=== PATIENT | female | born 1940 | race Caucasian/White ===

== ENCOUNTER 2017-07-11 10:51 | Inpatient (IN) | payer OTHER ==
[~2017-07-11] VITALS: Ht 152.4 cm; Wt 103.4 kg
[2017-07-11 10:55] VITALS: BP 238/133
[2017-07-11] MEDS ORDERED: LISINOPRIL20 MG PO (10:59)
[2017-07-11 11:30] LABS: ABSOLUTE BASOPHILS 0.1 thou/uL (0.0-0.2); ABSOLUTE EOSINOPHILS 0.1 thou/uL (0.0-0.7); ABSOLUTE LYMPHOCYTES 1.9 thou/uL (0.8-5.3); ABSOLUTE MONOCYTES 0.5 thou/uL (0.0-1.2); ABSOLUTE NEUTROPHILS 4.4 thou/uL (1.6-8.1); BASOPHILS 0.8 %; EOSINOPHILS 1.7 %; HEMATOCRIT 43.1 % (37.0-47.0); HEMOGLOBIN 14.5 gm/dL (12.0-15.0); LYMPHOCYTES 27.1 %; MCH 30.4 pg (26.0-34.0); MCHC 33.7 g/dL (28.0-37.0); MCV 90.3 fL (80.0-100.0); MONOCYTES 6.9 %; MPV 8.5 fl. (7.2-11.1); NUCLEATED RBCS 0 /100WBC; PLATELET COUNT* 204 thou/uL (150-400); POLYS 63.5 %; RBC 4.78 mil/uL (4.20-5.00); RDW-CV 13.4 % (10.5-14.5); WBC 6.9 thou/uL (4.0-11.0)
--- NOTE | 2017-07-11 11:37 | NUR ---
JEROME) NOTIFIED UPON PT RETURN FROM CT. PT CONNECTED TO MONITOR
[2017-07-11 11:41] LABS: ANION GAP 4 mmol/L (7-16); BUN 16 mg/dL (7-18); CALCIUM 8.4 mg/dL (8.5-10.1); CHLORIDE 106 mmol/L (98-107); CO2 30 mmol/L (21-32); CREATININE 0.9 mg/dL (0.6-1.3); GLUCOSE 114 mg/dL (70-99); POTASSIUM 3.8 mmol/L (3.5-5.1); SODIUM 140 mmol/L (136-145)
[2017-07-11 11:48] LABS: ALBUMIN 3.3 g/dL (3.4-5.0); ALKALINE PHOSPHATASE 82 U/L (46-116); SGOT 25 U/L (15-37); SGPT 32 U/L (30-65); TOTAL BILIRUBIN 0.5 mg/dL (<0.1-1.0); TOTAL PROTEIN 6.9 g/dL (6.4-8.2); TROPONIN-I LEVEL <0.06 ng/mL (<0.06)
[2017-07-11 12:44] LABS: URINE BILIRUBIN NEGATIVE (Negative); URINE BLOOD NEGATIVE (Negative); URINE CLARITY CLEAR; URINE COLOR YELLOW; URINE GLUCOSE-RANDOM NEGATIVE (Negative); URINE KETONES NEGATIVE (Negative); URINE LEUKOCYTES-REFLEX 1+ (Negative); URINE NITRITE-REFLEX NEGATIVE (Negative); URINE PROTEIN NEGATIVE (Negative); URINE SPECIFIC GRAVITY 1.015 (1.005-1.030); URINE UROBILINOGEN 0.2 E.U./dl (0.2-1.0)
[2017-07-11 13:01] LABS: MUCUS None Seen strn/LPF (None Seen); SQUAMOUS >10 Many /LPF (0-3)
[2017-07-11 13:02] LABS: URINE WBC-REFLEX 0-5 Rare /HPF (0-5)
[2017-07-11 13:03] LABS: CRYSTALS None Seen /LPF (None Seen); HYALINE CASTS 0-3 Few /LPF (None Seen); URINE RBC None Seen /HPF (0-2)
--- NOTE | 2017-07-11 16:52 | EKG ---
[place] [address] ELECTROCARDIOGRAM REPORT Name: MARGARETGRISEL Room: [place] [address] ADM IN [facility]#: [id number] Admission: 07/11/17 Attend Phys: German Mendez MD Discharge: Date of : 42 Report #: [id number] THIS REPORT FOR: //name// [facility] ED Test Date: 2017-07-11 Test Time: 11:02:59 Pat Name: GRISEL ROBLES Department: Room: Gender: F [employer]: : 1940 Requested By: Morgan Reese Order Number: [id number] MD: Liang Jung Measurements Intervals [place] Rate: 67 P: 45 SC: 166 QRS: -10 QRSD: 94 T: 6 QT: 402 QTc: 425 Interpretive Statements Sinus rhythm Left ventricular hypertrophy Borderline T abnormalities, anterior leads No previous ECG available for comparison Electronically Signed On 07-11-2017 16:52:39 CDT by Liang Jung [email or web address] <ELECTRONICALLY SIGNED> By: Liang Jung MD, [facility] 07/11/17 1652 D: 051101 01 Liang Jung MD, FACC /EPI
--- NOTE | 2017-07-11 17:13 | 2DMMODE ---
[place] [address] 2 D/M-MODE ECHOCARDIOGRAM Name: ROBLESGRISEL J Room: [address] IN [facility]#: [id number] Admission: 07/11/17 Attend Phys: German Mendez, Discharge: Date of : 42 Date of Service: 07/11/17 1713 Report #: [id number] THIS REPORT FOR: //name// APPROVED REPORT Study performed: 07/11/2017 14:41:16 EXAM: Comprehensive 2D, Doppler, and color-flow Echocardiogram Patient Location: In-Patient Room #: er Status: routine BSA: 2.03 HR: 87 bpm BP: 170/66 mmHg Rhythm: NSR Other Information Study Quality: Good Indications CVA/TIA Echo Enhancing Agent Indication: Rule out Shunt Agent(s) / Amount(s) Used: Agitated Saline 10 cc 2D Dimensions LVEF(%): 74.75 (>50%) IVSd: 11.48 (7-11mm) LVOT Diam: 18.78 (18-24mm) LVDd: 43.84 mm PWd: 11.05 (7-11mm) Ascending Ao: 35.12 (22-36mm) LVDs: 24.83 (25-40mm) Aortic Root: 33.15 mm Hodgson's LVEF: 74.75 % Volumes Left Atrial Volume (Systole) LA ESV Index: 24.50 mL/m2 Aortic Valve AoV Peak Gabino.: 1.55 m/s AO Peak Gr.: 9.64 mmHg LVOT Max P.24 mmHg AO Mean Gr.: 5.02 mmHg LVOT Mean P.00 mmHg LVOT Max V: 1.25 m/s AO V2 VTI: 34.80 cm LVOT Mean V: 0.79 m/[place] [address] 2 D/M-MODE ECHOCARDIOGRAM Name: GRISEL ROBLES Room: [address] IN ..#: [id number] Admission: 07/11/17 Attend Phys: German Mendez, Discharge: Date of : 42 Date of Service: 07/11/17 1713 Report #: [id number] EMILY (VTI): 2.58 cm2 LVOT V1 VTI: 32.45 cm Mitral Valve E/A Ratio: 0.70 MV Decel. Time: 296.29 ms MV E Max Gabino.: 0.72 m/s MV PHT: 85.92 ms MVA (PHT): 2.56 cm2 TDI E/Lateral E': 6.55 E/Medial E': 6.00 Medial E' Gabino.: 0.12 m/s Lateral E' Gabino.: 0.11 m/s Pulmonary Valve PV Peak Gabino.: 1.10 m/s PV Peak Gr.: 4.84 mmHg Left Ventricle The left ventricle is normal size. There is normal LV segmental wall motion. There is normal left ventricular wall thickness. Left ventricular systolic function is normal. The left ventricular ejection fraction is within the normal range. LVEF is 55-60%. Grade I - abnormal relaxation pattern. Right Ventricle The right ventricle is normal size. The right ventricular systolic function is normal. Atria The left atrium size is normal. Interatrial septum is intact without evidence of ASD or PFO. The right atrium size is normal. Aortic Valve The aortic valve is normal in structure. Trace aortic regurgitation. There is no aortic valvular stenosis. Mitral Valve The mitral valve is normal in structure. Trace mitral regurgitation. No evidence of mitral valve stenosis. Tricuspid Valve The tricuspid valve is normal in structure. Unable to assess PA pressure. Trace tricuspid regurgitation. Pulmonic Valve The pulmonary valve is normal in structure. [place] [address] 2 D/M-MODE ECHOCARDIOGRAM Name: ROBLESGRISEL J Room: [address] IN .R.#: [id number] Admission: 07/11/17 Attend Phys: German Mendez, Discharge: Date of : 42 Date of Service: 07/11/17 1713 Report #: [id number] regurgitation. Great Vessels The aortic root is normal in size. IVC is normal in size and collapses with >50% inspiration Pericardium There is no pericardial effusion. <Conclusion> LVEF is 55-60%. Interatrial septum is intact without evidence of ASD or PFO. <ELECTRONICALLY SIGNED> By: Liang Jung MD, FACC 07/11/171712 12 12 Liang Jung MD, FACC /INF
[2017-07-11 17:31] VITALS: BP 176/70
[2017-07-11 18:25] VITALS: BP 155/63
[2017-07-11 18:40] VITALS: BP 164/56
[2017-07-11 20:03] VITALS: BP 170/58
[2017-07-11 23:57] VITALS: BP 124/46
[2017-07-12 04:05] VITALS: BP 149/58
[2017-07-12 05:11] LABS: HEMOGLOBIN 13.7 gm/dL (12.0-15.0); MCH 30.6 pg (26.0-34.0); MCHC 33.4 g/dL (28.0-37.0); MCV 91.4 fL (80.0-100.0); RBC 4.48 mil/uL (4.20-5.00); RDW-CV 13.8 % (10.5-14.5); WBC 7.7 thou/uL (4.0-11.0)
--- NOTE | 2017-07-12 05:14 | NUR ---
PT IS ABLE TO COMMUNICATE HER NEEDS TO STAFF EFFECTIVELY. CURRENT PAIN MEDICATION REGIMEN HAS BEEN ADEQUATE FOR CONTROLLING HER PAIN UP TO THIS TIME. NO OBSERVABLE CHANGE TO NEUROLOGIC STATUS UP TO THIS TIME. NEUROLOGY CONSULTED. POSSIBLE DISCHARGE TODAY.
[2017-07-12 05:27] LABS: CHOLESTEROL 197 mg/dL (<200); HDL CHOLESTEROL 55 mg/dL (>40); LDL CHOLESTEROL 128 mg/dL (<100); TC:HDL 3.6 Ratio (Not establshd); TRIGLYCERIDE 73 mg/dL (<150); VLDL 15 mg/dL (<40)
[2017-07-12 05:32] LABS: SERUM ASSESSMENT CLEAR
[2017-07-12 06:13] LABS: CALCIUM 8.5 mg/dL (8.5-10.1); CREATININE 0.9 mg/dL (0.6-1.3); MAGNESIUM 2.2 mg/dL (1.8-2.4); POTASSIUM 3.9 mmol/L (3.5-5.1)
--- NOTE | 2017-07-12 08:24 | NUR ---
ASSUMED PT. CARE AND RECEIVED REPORT AT 0730. PT A/OX4, BP BETTER TODAY AT 150/76, ALL OTHER VSS. PT. C/O HAVING OCULAR MIGRAINE THIS MORNING, STATING CONCERN BECAUSE SHE IS HAVING THEM EVERYDAY HERE RECENTLY. ON RA @ 95%. DENIES CURRENT NUMBNESS/TINGLING. FULL ASSESSMENT COMPLETED, REFER TO CHARTING. CALL LIGHT IN REACH, WILL CONTINUE WITH PLAN OF CARE.
[2017-07-12 08:26] VITALS: BP 150/76
[2017-07-12] MEDS ORDERED: ATORVASTATIN CA20 MG PO (09:09)
[2017-07-12] MEDS ORDERED: ADULT LOW DOSE81 MG PO (09:09)
--- NOTE | 2017-07-12 11:58 | NUR ---
PT'S MEDICAL CHART REVIEWED AND STATUS DISCUSSED W/ NSG. PT IS UP AD [facility] INDEP IN ROOM DEMONSTRATING STABLE TRANSFERS AND GAIT W/O DME SUPPORT. PT VOICES NO CONCERNS W/ DISCHARGE TO HOME. NO FURTHER ACUTE PT SERVICES ARE INDICATED.
[2017-07-12 12:16] VITALS: BP 165/64
[2017-07-12 12:25] VITALS: BP 165/64
--- NOTE | 2017-07-12 14:04 | NUR ---
PT. REPORTED TORDAL HELPED WITH "FLOATERS", HOWEVER SHE WAS STILL HAVING AN ACHING NECK. SHE CONTINUED TO REPORT THAT SHE WANTED TO GO HOME. IV AND MONITOR REMOVED. PT. GIVEN DC INSTRUCTIONS, SCRIPTS, AND CARENOTES. PT. LEFT IN PERSONAL VEHICLE, ALL BELONGINGS ACCOUNTED FOR.
[2017-12-18] MEDS ORDERED: EFUDEX40 GM TOP (09:36)
[2017-12-18] MEDS ORDERED: GARLIC OIL1000 MG PO (09:36)
[2017-12-18] MEDS ORDERED: UNICOMPLEX M TA1 TA1 PO (09:37)
[2017-12-18] MEDS ORDERED: OMEGA-31000 M1 PO (09:37)
[2017-12-18] MEDS ORDERED: MOBIC15 MG PO (11:03)
== END 2017-07-12 13:30 | disposition home or self-care (01) | DRG 103 ==
LOC: M.ERS 10:51 → M.TBA-ER 13:34 → M.2W 13:34
PROVIDERS: Emergency Medicine Emergency Medical Services; ADMIT Internal Medicine
DX: G43.101 Migraine with aura, not intractable, with status migrainosus (principal); E44.1 Mild protein-calorie malnutrition; I16.1 Hypertensive emergency; Z68.41 Body mass index [BMI] 40.0-44.9, adult; I10 Essential (primary) hypertension; G43.B0 Ophthalmoplegic migraine, not intractable; E78.5 Hyperlipidemia, unspecified; E66.9 Obesity, unspecified; Z79.82 Long term (current) use of aspirin; Z79.899 Other long term (current) drug therapy

== ENCOUNTER → 2017-07-24 | Outpatient (CLI) | payer OTHER ==
[~2017-07-24] MED LIST: ADULT LOW DOSE81 MG PO; ATORVASTATIN CA20 MG PO; EFUDEX40 GM TOP; GARLIC OIL1000 MG PO; LISINOPRIL20 MG PO; MOBIC15 MG PO; OMEGA-31000 M1 PO; UNICOMPLEX M TA1 TA1 PO
== END ==
LOC: M.MRI 07-14 12:24
DX: M50.223 Other cervical disc displacement at C6-C7 level (principal); M50.322 Other cervical disc degeneration at C5-C6 level; G45.9 Transient cerebral ischemic attack, unspecified; I63.9 Cerebral infarction, unspecified; M79.601 Pain in right arm

== ENCOUNTER → 2017-08-04 | Outpatient (CLI) | payer OTHER | LOC: M.MRI 07:49 | DX: M47.26 Other spondylosis with radiculopathy, lumbar region (principal); M48.061 Spinal stenosis, lumbar region without neurogenic claudication; M12.88 Other specific arthropathies, not elsewhere classified, other specified site; M25.78 Osteophyte, vertebrae ==

== ENCOUNTER → 2017-12-18 | Outpatient (CLI) | payer OTHER ==
--- NOTE | 2018-01-07 16:20 | PAINCON ---
[address] [address] PAIN MANAGEMENT CONSULTATION Name: GRISEL ROBLES [facility]: [facility]#: [id number] Admission: 12/18/17 Attend Phys: Zahraa Huang MD Discharge: Date of : 42 Report #: [id number] THIS REPORT FOR: //name// CC: Concepcion Huang DATE OF SERVICE: 12/18/2017 CHIEF COMPLAINT: Pain in the low back and pain in the left neck. HISTORY OF PRESENT ILLNESS: The patient is a 77-year-old female who has been referred to the pain clinic for evaluation. She has been experiencing pain and discomfort in the lower portion of her back. She had an MRI that showed some spondylolisthesis at L4-L5. She described some of the pain in her low back and neck as burning in character. Has had some numbness in her right arm. Has some burning sensation in her lower back. Perceives some numbness in her right leg, also has a history of migraine headaches with aura. She overall rates her pain as a 3/10. She has some questions about steroid use and medications. ALLERGIES: No known drug allergies. MEDICATIONS: Aspirin 81 mg, garlic 1000 mg, lisinopril total of 40 mg, multivitamins, omega-3 fatty acids, vitamin D3 50,000 units. PAST MEDICAL HISTORY: Hyperlipidemia, hypertension, rheumatoid arthritis, actinic keratoses, cervical radiculopathy and lumbar radiculopathy. Ocular migraines. PAST SURGICAL HISTORY: Polypectomy and tonsillectomy. SOCIAL HISTORY: She is retired. She is . REVIEW OF SYSTEMS: Fatigue, weakness, headaches, ringing in the ears, back pain, frequent headaches, numbness and tingling sensation. LABORATORY DATA: MRI of the lumbar spine dated 08/04/2017: 1. L2-L3, there is posterior ossific ridging and mild diffuse disk bulge. No significant central canal stenosis. Mild bilateral facet arthrosis. 2. L3-L4, mild diffuse disk bulge. There is no specific central canal stenosis. There is mild bilateral facet arthrosis. Some mild left neural foraminal stenosis due to facet spurring and mild foraminal disk bulging. 3. L4-L5, there is uncovering of the posterior superior aspects of the disk. There is diffuse posterior disk bulge. There is severe bilateral facet arthrosis and spurring with right-sided facet spurring, abutting and displacing the descending right L5 nerve root. There is moderate thecal sac stenosis and zyguaool-ei-kvizen bilateral subarticular zone stenosis due to facet spurring, [place] [address] PAIN MANAGEMENT CONSULTATION Name: DARIUSZ ROBLESHolly Butts [id number] Admission: 12/18/17 Attend Phys: Zahraa Huang MD Discharge: Date of : 42 Report #: [id number] right greater than left. There is foraminal disk bulging and facet spurring resulting in suyznshh-dt-gsmkic medial bilateral neural foraminal stenosis. 4. L5-S1, there is a diffuse posterior disk bulge with superimposed right supra-articular zone disk protrusion seen. There is moderate to severe bilateral facet arthrosis and spurring with right-sided facet spurring in combination with right subarticular zone disk protrusion resulting in effacement and impingement upon the descending right S1 nerve root. There is facet spurring and foraminal disk bulging resulting in [id number] right and severe left neural foraminal stenosis. 5. MRI of the cervical spine dated 07/24/2017, C7/T1 show mild disk bulging asymmetry to the left. The central canal is maintained and there is no significant foraminal encroachment. 6. C6-C7 shows a central slightly left focal disk protrusion, but causes mass effect upon the cord and canal with AP diameter measuring 6-7 mm. The neural foramen are encroached greater on the left at this level from uncovertebral degenerative changes as well as a focal disk protrusion. 7. C5/C6 shows fairly broad-based disk bulging diffusely. The central canal is mildly narrowed measuring 8 mm. There is bilateral foraminal encroachment from uncovertebral degenerative changes and the diffuse disk bulge. 8. C4-C5 shows a central disk protrusion. There is only mild mass effect on the canal with canal lower limits of normal, centrally measuring 10 mm. 9. C3-C4. No focal distribution. PAIN CLINIC AND PQRS: 1. Osteoarthritic changes. The patient states that she has osteoarthritic changes in her knee as well as in her back. She has not been treated for rheumatoid arthritis. 2. Height 5 feet 4 inches, weight 243 pounds, BMI is 40. 3. Vital Signs: Blood pressure 140/52, heart rate 58, respiratory rate 16, room air saturation is 94%. Temperature 98.1. 4. Pain intensity 05/03. 5. Fall history: The patient has not fallen in the last 3 months. 6. Blood thinner. The patient is not on a blood thinning medication. 7. Hypertension. The patient has been treated for hypertension. 8. Opioid therapy greater than 6 weeks. The patient is not on opioid medication. 9. Risk assessment tool, low for opioid use. 10. Functional assessment tool. 11. Recreational drug use. The patient denies use of recreational drugs. 12. Tobacco: The patient denies use of tobacco. 13. Alcohol: The patient denies use of alcoholic beverages. PHYSICAL EXAMINATION: GENERAL: The patient is a well-developed, well-nourished white female. Appears her stated age. She is alert and oriented x 3. Affect is appropriate. [place] [address] PAIN MANAGEMENT CONSULTATION Name: GRISEL ROBLES Room: [facility]#: [id number] Admission: 12/18/17 Attend Phys: Zahraa Huang MD Discharge: Date of : 42 Report #: [id number] HEENT: Normocephalic, atraumatic. Extraocular eye muscles intact. Sclerae nonicteric. The patient complains of some pain and discomfort and at times with discomfort in the left occipital area as well as some discomfort down into her right arm on occasion. Notes that sleeping on a pillow, riding a riding rn orthopedic can exacerbate her neck pain as well as her back pain. NECK: Cervical compression did not cause pain or discomfort in either the left or the right arm. LUNGS: Clear to auscultation without rhonchi or rales. HEART: Regular rate. S1, S2. ABDOMEN: Nontender. MUSCULOSKELETAL: Without significant scoliosis, kyphosis or lordosis. The patient is able to stand on her toes and heels. Forward bending to about 75 degrees was not very problematic, but the patient did note some discomfort in low back area. Lumbar extension were not very problematic. With left and right lateral rotation cause some irritation in the low back area, left and right tilting cause some discomfort in low back area. The patient is not complaining of lumbar radicular pain at this juncture. She has experienced lumbar radiculopathy involving the sciatic nerve. States that this has happened when she was riding for prolonged time in a car. IMPRESSION: 1. History of cervical radicular pain. 2. Lumbar radicular pain. 3. Myofascial back pain. 4. Ocular migraines with right-sided weakness in the past, left neck/face show tingling with visual changes in the left eye. RECOMMENDATIONS: We discussed treatment options with the patient. At this juncture, she would like to pursue the most conservative approaches. We will provide her with a script for Mobic. She is not taking a nonsteroidal anti-inflammatory medication. She will try this medication and note its efficacy. Possibility of a Medrol Dosepak remains an option. If the patient's pain becomes problematic to the point where she would like to pursue an epidural steroid injection, that option is available as well. We would like to thank you for letting us participate in her care. We hope she continues to improve. <ELECTRONICALLY SIGNED> By: Zahraa Huang MD 01/07/18 1620 1421 [id number]. Zheng Huang MD /[facility]
== END ==
LOC: M.PC 09-23 09:10
DX: M54.12 Radiculopathy, cervical region (principal); M54.16 Radiculopathy, lumbar region; M79.18 Myalgia, other site; G43.809 Other migraine, not intractable, without status migrainosus